=== PATIENT | female | born 1945 | race Caucasian/White ===

== ENCOUNTER 2020-09-24 10:38 | Emergency (ER) | payer MEDICARE, OTHER ==
[~2020-09-24] VITALS: Ht 157.5 cm; Wt 54.5 kg
[~2020-09-24 10:38] MED LIST: ADALAT CC30 MG PO; ALDACTONE 25MG25 M1 PO; DETROL LA 2 MG2 MG PO; FOLIC ACID 11 MG/TA1 PO; KLOR-CON 1010 MEQ PO; METHOTREXA2.5 MG/TAB PO; NEXIUM 40MG40 MG PO; PLAVIX 75MG TAB75 MG PO; REMICADE V100 MG/VIA IV; SINEMET CR 50 M1 TER PO; SYNTHROID0.075 MG/T PO; VITAMIN D1000 IU PO; ZOCOR 40MG40 MG PO
[2020-09-24 10:44] VITALS: TEMP 97.8
[2020-09-24 11:03] LABS: BASO # 0.1 (0.0-0.2); BASO % 0.4 % (0.0-2.0); EOS # 0.5 (0.0-0.7); EOS % 3.5 % (0-4.0); GRAN # 8.8 (1.4-6.5); GRAN % 65.1 % (42.2-75.2); HEMATOCRIT 42.1 % (37.0-47.0); HEMOGLOBIN 13.6 g/dl (12.5-16.0); LYMPH # 3.1 (1.2-3.4); LYMPH % 22.5 % (20.0-51.0); MEAN CELL VOLUME 103 fl (80.0-100.0); MEAN CORPUSCULAR HEMOGLOBIN 33 pg (27.0-31.0); MEAN CORPUSCULAR HGB CONC 32 g/dl (33.0-37.0); MEAN PLATELET VOLUME 9.9 fl (7.4-10.4); MONO # 1.1 (0.1-0.6); MONO % 8.3 % (1.7-9.3); PLATELET COUNT 255 K/mm3 (130-400); REDCELL DISTRIBUTION WIDTH-CV 13.7 % (11.5-14.5)
[2020-09-24 11:07] LABS: PROTHROMBIN TIME 11.5 SECONDS (9.7-12.8)
[2020-09-24 11:10] LABS: ALANINE AMINOTRANSFERASE 7 U/L (4-34); ALBUMIN 4.5 gm/dL (3.5-5.0); ALKALINE PHOSPHATASE 83 U/L (50-136); ANION GAP 9 mmol/L (7-16); AST,SGOT 34 U/L (15-37); BILIRUBIN,TOTAL 1.4 mg/dL (0.0-1.0); BLOOD UREA NITROGEN 23 mg/dL (7-17); CALCIUM 9.5 mg/dL (8.4-10.2); CARBON DIOXIDE 27 mmol/L (22-30); CHLORIDE 102 mmol/L (98-107); CREATININE, serum 0.99 (0.52-1.25); GLUCOSE 103 mg/dL (74-106); POTASSIUM 3.9 mmol/L (3.4-5.0); SODIUM 138 mmol/L (137-145); TOTAL PROTEIN 8.6 gm/dL (6.4-8.2)
[2020-09-24 11:54] LABS: COLLECTION METHOD CLEAN CATCH
[2020-09-24 12:01] LABS: MUCOUS Present /lpf; PH 7 (5-8); SQUAMOUS EPITHELIAL None Seen /hpf; URINE APPEARANCE Hazy; URINE BACTERIA Rare /hpf; URINE BILIRUBIN Negative (NEGATIVE); URINE BLOOD 2+ (NEGATIVE); URINE COLOR Yellow; URINE GLUCOSE Negative (NEGATIVE); URINE KETONE Negative (NEGATIVE); URINE LEUKOCYTE ESTERASE 3+ (NEGATIVE); URINE NITRATE Negative (NEGATIVE); URINE PROTEIN(semi-quant) 1+ (NEGATIVE); URINE RBC 20-50 /hpf; URINE UROBILINOGEN Negative (NEGATIVE)
[2020-09-24 12:06] LABS: TROPONIN-I < 0.012 ng/mL (0.000-0.035)
[2020-09-24] MEDS ORDERED: ZTLIDO1 EACH TP (15:19)
[2020-09-24] MEDS ORDERED: CEFTIN500 MG PO (15:19)
[2020-09-24] MEDS ORDERED: ULTRAM 50MG TAB50 MG PO (15:19)
[2020-09-24 15:27] VITALS: BP 137/84; PULSE 76
== END 2020-09-24 15:30 | disposition home or self-care (01) ==
LOC: COL.ER 10:38
PROVIDERS: Family Medicine; Nurse Practitioner
DX: I10 Essential (primary) hypertension (principal); R07.89 Other chest pain; M54.12 Radiculopathy, cervical region; E78.5 Hyperlipidemia, unspecified; Z88.2 Allergy status to sulfonamides; Z91.040 Latex allergy status; Z88.0 Allergy status to penicillin; Z88.5 Allergy status to narcotic agent
CPT/HCPCS: J0696; J2270; J2405

== ENCOUNTER → 2021-03-21 | Outpatient (CLI) | payer MEDICARE, OTHER ==
[~2021-03-21] MED LIST changes: +CEFTIN500 MG PO; +ULTRAM 50MG TAB50 MG PO; +ZTLIDO1 EACH TP
== END ==
LOC: MHCPAIN 12:55
DX: M47.812 Spondylosis without myelopathy or radiculopathy, cervical region (principal); M54.12 Radiculopathy, cervical region; G89.29 Other chronic pain
CPT/HCPCS: G0463

== ENCOUNTER → 2021-04-04 | Outpatient (CLI) | payer MEDICARE, OTHER | LOC: MHCPAIN 12:59 | DX: M47.812 Spondylosis without myelopathy or radiculopathy, cervical region (principal); M54.2 Cervicalgia; G89.29 Other chronic pain | CPT/HCPCS: G0463 ==